=== PATIENT | male | born 1985 | race Caucasian/White ===

== ENCOUNTER 2019-04-03 17:02 | Emergency (ER) | payer OTHER ==
[~2019-04-03] VITALS: Ht 180.3 cm; Wt 75.7 kg
[~2019-04-03 17:02] MED LIST: ACULAR 0.5%3 ML OPH; AMOXICILLIN500 M2 PO; ANAPROX DS550 MG PO; BENTYL10 MG PO; CEFADROXIL500 M1 PO; FLAGYL500 MG PO; FLONASE ALLERG9.9 ML NAS; KEFLEX500 MG PO; Motrin,Rufen800 MG PO; NKHM PO; TOBREX OPHTH S2.5 ML OPH; VICODIN 5-3001 EACH PO; ZANTAC 150150 MG PO; ZANTAC150 MG PO; ZITHROMAX Z PA250 MG PO; ZOFRAN4 MG PO; ZYRTEC10 MG PO
== END 2019-04-03 19:30 | disposition short-term general hospital (02) ==
LOC: ED 17:02
DX: S62.621A Displaced fracture of middle phalanx of left index finger, initial encounter for closed fracture (principal); S61.411A Laceration without foreign body of right hand, initial encounter; F17.200 Nicotine dependence, unspecified, uncomplicated; W23.0XXA Caught, crushed, jammed, or pinched between moving objects, initial encounter; Y93.89 Activity, other specified; Y92.89 Other specified places as the place of occurrence of the external cause; Y99.8 Other external cause status

== ENCOUNTER 2019-06-19 18:59 | Emergency (ER) | payer OTHER ==
[~2019-06-19] VITALS: Ht 180.3 cm; Wt 72.6 kg
== END 2019-06-19 19:50 | disposition left against medical advice (07) ==
LOC: ED 18:59
DX: H57.11 Ocular pain, right eye (principal); Z53.21 Procedure and treatment not carried out due to patient leaving prior to being seen by health care provider

== ENCOUNTER 2020-02-01 10:05 | Emergency (ER) | payer OTHER ==
[~2020-02-01] VITALS: Wt 77.1 kg
[2020-02-01 11:25] LABS: BASO % 0.5 % (0.0-1.0); EOS # 0.2 10*3/uL (0.0-0.4); EOS % 2.7 % (1.0-4.0); HEMATOCRIT 46.2 % (42.0-52.0); LYMPH # 1.4 10*3/uL (1.3-4.4); LYMPH % 16.4 % (27.0-41.0); MEAN CELL VOLUME 91.3 fl (80.0-94.0); MEAN CORPUSCULAR HGB 31.2 pg (27.0-31.0); MEAN CORPUSCULAR HGB CONC 34.2 g/dl (33.0-37.0); MEAN PLATELET VOLUME 9.6 fl (9.6-12.3); MONO # 0.9 10*3/uL (0.1-1.0); MONO % 11.1 % (3.0-9.0); NEUT # 5.8 10*3/uL (2.3-7.9); NEUT % 69.2 % (47.0-73.0); PLATELET COUNT AUTOMATED 214 10*3/uL (130-400); RED BLOOD COUNT 5.06 10*6/uL (4.50-5.90); RED CELL DISTRI WIDTH 12.6 % (0-14.5); WHITE BLOOD COUNT 8.3 10*3/uL (4.8-10.8)
[2020-02-01 11:42] LABS: ALBUMIN 3.9 gm/dl (3.1-4.5); ALKALINE PHOSPHATASE 72 U/L (45-117); BUN 6 mg/dl (7-24); CHLORIDE 104 mmol/L (98-107); CREATININE 0.69 mg/dL (0.70-1.30); POTASSIUM 3.9 mmol/L (3.5-5.1); SGOT/AST 14 IU/L (3-35); SGPT/ALT 21 U/L (12-78); SODIUM 137 mmol/L (136-145); TOTAL PROTEIN 7.9 gm/dL (6.4-8.2)
[2020-02-01 11:43] LABS: TROPONIN I < 0.015 ng/ml (<0.045)
[2020-02-01] MEDS ORDERED: DOXYCYCLINE100 M3 PO (12:26)
[2020-02-01] MEDS ORDERED: PREDNISONE10 MG PO (12:26)
== END 2020-02-01 13:47 | disposition home or self-care (01) ==
LOC: ED 10:05
PROVIDERS: Internal Medicine
DX: J20.9 Acute bronchitis, unspecified (principal); F17.200 Nicotine dependence, unspecified, uncomplicated

== ENCOUNTER 2021-05-27 20:55 | Emergency (ER) | payer OTHER ==
[~2021-05-27] VITALS: Ht 177.8 cm; Wt 74.8 kg
[~2021-05-27 20:55] MED LIST changes: +DOXYCYCLINE100 M3 PO; +PREDNISONE10 MG PO
[2021-05-27] MEDS ORDERED: IBUPROFEN600 MG PO (23:04)
== END 2021-05-27 23:14 | disposition home or self-care (01) ==
LOC: ED 20:55
DX: S50.12XA Contusion of left forearm, initial encounter (principal); W45.8XXA Other foreign body or object entering through skin, initial encounter; Y93.89 Activity, other specified; Y92.89 Other specified places as the place of occurrence of the external cause; Y99.8 Other external cause status

== ENCOUNTER 2023-10-30 18:53 | Emergency (ER) | payer OTHER ==
[~2023-10-30] VITALS: Ht 177.8 cm; Wt 79.4 kg
[~2023-10-30 18:53] MED LIST changes: +IBUPROFEN600 MG PO
[2023-10-30] MEDS ORDERED: Sulfamethoxazole/Trimethopri 1 TAB TAB PO ONE (19:10)
[2023-10-30] MEDS ORDERED: SEPTDS PO (19:14)
== END 2023-10-30 19:23 | disposition home or self-care (01) ==
LOC: ED 18:53
DX: L72.3 Sebaceous cyst (principal)